=== PATIENT | male | born 1955 | race Caucasian/White ===

== ENCOUNTER 2017-08-15 07:58 | Day surgery (SDC) | payer BC ==
[2017-08-10 09:38] VITALS: BMI 26.7
[~2017-08-15 07:58] MED LIST: LACTATED RINGERS 1,000 ML IV SCH
--- NOTE | 2017-08-15 08:13 | P.GSHP ---
History of Present Illness H&P Date: 08/15/17 CHIEF COMPLAINT: Colon screen HISTORY OF PRESENT ILLNESS: The patient is a 62-year-old male who presents for colon screen. Lower endoscopy was offered for further evaluation and management. PAST MEDICAL HISTORY: Please see list. PAST SURGICAL HISTORY: Please see list. MEDICATIONS: Please see list. ALLERGIES: Please see list. SOCIAL HISTORY: No illicit drug use FAMILY HISTORY: No reports of Crohn disease or ulcerative colitis. REVIEW OF ORGAN SYSTEMS: CONSTITUTIONAL: No reports of fevers or chills. PHYSICAL EXAM: VITAL SIGNS: Stable GENERAL: Well-developed pleasant in no acute distress. HEENT: No scleral icterus. Extraocular movements grossly intact. Moist buccal mucosa. NECK: Supple without lymphadenopathy. CHEST: Unlabored respirations. Equal bilateral excursions. CARDIOVASCULAR: Regular rate and rhythm. Distal 2+ pulses. ABDOMEN: Soft, nontender, nondistended. MUSCULOSKELETAL: No clubbing, cyanosis, or edema. ASSESSMENT: 1. Colon screen. PLAN: 1. 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, r/t severed carotid artery post tonsillectomy, unable to tip head "all the way back" History of Any Multi-Drug Resistant Organisms: None Reported Past Surgical History: Tonsillectomy Additional Past Surgical History / Comment(s): tracheostomy post tonsillectomy r /t severed carotid artery, hemmoroid sx, rhinoplasty Additional Past Anesthesia/Blood Transfusion Reaction / Comment(s): "unable to tip head all the way back" hx of scar tissue r/t to hx tracheostomy Smoking Status: Current every day smoker - Past Family History Father Family Medical History: Cancer Mother Family Medical History: Cancer Medications and Allergies Home Medications Medication Instructions Recorded Confirmed Type Cholecalciferol [Vitamin D3] 1,000 unit PO DAILY 08/10/17 08/10/17 History Cyanocobalamin (Vitamin B-12) 1,000 mcg PO DAILY 08/10/17 08/10/17 History [Vitamin B-12] Ranitidine HCl 150 mg PO HS 08/10/17 08/10/17 History Sildenafil Citrate [Sildenafil] 10 mg PO HS 08/10/17 08/10/17 History Stool Softener 1 tab PO DAILY 08/10/17 History Allergies Allergy/AdvReac Type Severity Reaction Status Date / Time No Known Allergies Allergy Verified 08/10/17 09:25
[2017-08-15 09:06] VITALS: TEMP 97.7
[2017-08-15] MEDS ORDERED: LIDOCAINE 1% 20 ML VIAL (10MG/ML) FOR IV START INTRADERMA ONE (09:06)
[2017-08-15] MEDS ORDERED: PROPOFOL 10 MG/ML 20 ML VIAL IV ONE (09:59)
[2017-08-15] MEDS ORDERED: LIDOCAINE 1% INJ 10MG/ML (20 ML MDV) ONE (09:59)
[2017-08-15 11:12] VITALS: RESP 18
--- NOTE | 2017-08-15 11:14 | P.PCN ---
Date of Procedure: 08/15/17 Description of Procedure: PREOPERATIVE DIAGNOSIS: Colonoscopy screening. Personal history of colon polyps. POSTOPERATIVE DIAGNOSIS: Colonoscopy screening. Personal history of colon polyps. Multiple tubular adenomas throughout the colon. External hemorrhoids, grade 3. Internal hemorrhoids, grade 2 Severe scattered diverticulosis. OPERATION: Colonoscopy to the ileocecal valve and appendiceal orifice. Colonoscopy with multiple snare biopsies. Colonoscopy with multiple cold forceps biopsies. SURGEON: Kiki Ellis MD. ANESTHESIA: MAC. INDICATIONS: The patient is a 62-year-old male who presents for colonoscopy screening. Benefits and risks were described and informed consent was obtained. DESCRIPTION OF PROCEDURE: The patient had undergone Gatorade, MiraLAX and Dulcolax prep. He had been brought into the operating room and laid in the left lateral decubitus position. After adequate intravenous sedation, the rectum was examined with 2% lidocaine jelly. The prostate was smooth and without nodularity. External hemorrhoids were encountered. The rectal tone was within normal limits. No lesions were palpated in the rectal vault. An Olympus colonoscope was advanced until the ileocecal valve and appendiceal orifice were clearly viewed. The prep was fair with visualization of the mucosal folds. The scope was removed with visualization of each mucosal fold. Severe scattered diverticulosis was encountered. Abdominal pressure was required to advance the scope. Multiple colonic polyps were found and cold forcep biopsy or snare polypectomy. No evidence of focal colitis was found. Retroflexion of the scope demonstrated grade 2 internal hemorrhoids without active bleeding or inflammation. The colon was desufflated. The patient had tolerated the procedure well. Withdrawal time was over 6 minutes. FINDINGS: Internal hemorrhoids, grade 2 External hemorrhoids, grade 3 No arteriovenous malformations. Removal of 5 polyps from the proximal, mid transverse colon and descending colon : - Snare polypectomy 20 cm from the anal verge, 10 mm tubulovillous adenoma polyp. - Snare polypectomy 33 cm from the anal verge, 7 mm tubulovillous adenoma polyp. - Cold forceps biopsy at 55 cm from the anal verge, 5 mm polyp. - Cold forceps biopsy at hepatic flexure, 4 mm polyp. - Cold forceps biopsy at proximal ascending colon, 4 mm polyp. No focal colitis. Severe scattered diverticulosis RECOMMENDATIONS: Given severity of tubular adenomas, recommend repeat colonoscopy 1 year, 2019. Plan - Discharge Summary New Discharge Prescriptions: No Action Sildenafil Citrate [Sildenafil] 10 mg PO HS Cyanocobalamin (Vitamin B-12) [Vitamin B-12] 1,000 mcg PO DAILY Cholecalciferol [Vitamin D3] 1,000 unit PO DAILY Ranitidine HCl 150 mg PO HS Stool Softener 1 tab PO DAILY Discharge Medication List Cholecalciferol [Vitamin D3] 1,000 unit PO DAILY 08/10/17 [History] Cyanocobalamin (Vitamin B-12) [Vitamin B-12] 1,000 mcg PO DAILY 08/10/17 [ History] Ranitidine HCl 150 mg PO HS 08/10/17 [History] Sildenafil Citrate [Sildenafil] 10 mg PO HS 08/10/17 [History] Stool Softener 1 tab PO DAILY 08/10/17 [History] Follow up Appointment(s)/Referral(s): Kiki Ellis MD [STAFF PHYSICIAN] - 09/11/17 6:00 pm Patient Instructions/Handouts: *Surgery [facility] - (Anesthesia) Endoscopy Discharge Instructions, Hemorrhoids (GEN), Diverticulosis (DC), Colorectal Polyps (GEN), Diverticulosis Diet (GEN) Activity/Diet/Wound Care/Special Instructions: Repeat colonoscopy, 2019 Discharge Disposition: HOME SELF-CARE
[2017-08-15] MEDS ORDERED: METOCLOPRAMIDE 5 MG/ML 2 ML VIAL IVP STA (11:36)
[2017-08-15] MEDS ORDERED: ONDANSETRON 4 MG/2 ML VIAL IVP ONE (11:36)
[2017-08-15] MEDS ORDERED: SIMETHICONE 40 MG/0.6 ML DROPS 2,000 MG/30 ML BOTTLE PO SCH (11:40)
[2017-08-15] MEDS ORDERED: LACTATED RINGERS 1,000 ML IV ONE (12:52)
[2017-08-15] MEDS ORDERED: NALOXONE 0.4 MG/ML 1 ML VIAL IV PRN (12:52)
[2017-08-15] MEDS ORDERED: ONDANSETRON 4 MG/2 ML VIAL IVP PRN (12:52)
--- NOTE | 2017-08-15 12:55 | P.PN ---
Progress Note - Text Progress Note Date: 08/15/17 Patient now has ileus post procedure. We'll continue to observe. We'll obtain labs.
[2017-08-15] MEDS ORDERED: KETOROLAC 30 MG/ML 1 ML VIAL IVP SCH (13:00)
[2017-08-15] MEDS ORDERED: MIDAZOLAM 2 MG/2 ML VIAL IV ONE ×2 (13:00)
[2017-08-15 13:42] VITALS: BP 130/78; PULSE 64
[2017-08-15 13:50] LABS: Anion Gap 6 mmol/L; Blood Urea Nitrogen 13 mg/dL (9-20); Calcium 9.3 mg/dL (8.4-10.2); Carbon Dioxide 28 mmol/L (22-30); Chloride 104 mmol/L (98-107); Glucose 105 mg/dL (74-99); Magnesium 2.1 mg/dL (1.6-2.3); Sodium 138 mmol/L (137-145)
--- NOTE | 2017-08-15 13:55 | XR ---
EXAMINATION TYPE: XR abdomen complete w decub DATE OF EXAM: 08/15/2017 COMPARISON: 01/07/2010 HISTORY: Pain TECHNIQUE: 4 views of the abdomen are obtained. FINDINGS: There is no evidence for pneumoperitoneum. The bowel gas pattern demonstrates dilated air-filled large and small bowel loops. The patient is imm ediately post colonoscopy. Calcification the pelvis appears to be vascular.. No sizeable air fluid levels. No mass effects are seen. No unusual calcifications. IMPRESSION: Predominantly right-sided bowel distention likely post colonoscopy.
[2017-08-15] MEDS ORDERED: METOCLOPRAMIDE 5 MG/ML 2 ML VIAL IVP SCH (18:00)
--- NOTE | 2017-08-17 02:37 | CDI ---
Outpatient Documentation Clarification Form Date: 08/17/2017 CDS/Library Circulation Clerk Name: Matt Matthews Phone: If any questions, call Rosi Mac Architectural Draftsperson at [phone] Patient Name: Augustine Dunn Admit Date: 08/15/2017 Discharge Date: 08/15/2017 ATTENTION: The [facility] Coding Staff appreciate your assistance in clarifying documentation. Please respond to the clarification below the line at the bottom and electronically sign. The [facility] Coding staff will review the response and follow-up if needed. Please note: Queries are made part of the Legal Health Record. If you have any questions, please contact the Architectural Draftsperson. Dear Dr. Ellis, As per operative notes polypectomy was done. Snare and cold biopsy forceps polypectomy was done at 55, 20, 33 cm from the anal verge. Based on your clinical opinion please mention which anatomical locations of colon represents 55, 20, 33 cm from the anal verge. Thank you for your kind consideration. Please see amended report MTDD
--- NOTE | 2017-08-22 07:05 | CDI ---
Outpatient Documentation Clarification Form Date: 08/22/2017 CDS/Packing House Laborer Name: Matt Matthews Phone: If any questions, call Rosi Mac Warehouse Order Picker at [phone] Patient Name: Augustine Dunn Admit Date: 08/15/2017 Discharge Date: 08/15/2017 ATTENTION: The [facility] Coding Staff appreciate your assistance in clarifying documentation. Please respond to the clarification below the line at the bottom and electronically sign. The [facility] Coding staff will review the response and follow-up if needed. Please note: Queries are made part of the Legal Health Record. If you have any questions, please contact the Warehouse Order Picker. Dear Dr. Ellis, As per operative notes polypectomy was done. Snare and cold biopsy forceps polypectomy was done at 55, 20, 33 cm from the anal verge. Based on your clinical opinion please mention which anatomical locations of colon represents 55, 20, 33 cm from the anal verge. Thank you for your kind consideration. Removal of 5 polyps from the proximal, mid transverse colon and descending colon (Information is listed in the operative report) [facility]
== END 2017-08-15 14:18 | disposition home or self-care (01) ==
LOC: ORWHC2ENDO 07:58
PROVIDERS: ATTEND Surgery Plastic and Reconstructive Surgery
DX: Z12.11 Encounter for screening for malignant neoplasm of colon (principal); D12.3 Benign neoplasm of transverse colon; D12.4 Benign neoplasm of descending colon; D12.2 Benign neoplasm of ascending colon; F17.200 Nicotine dependence, unspecified, uncomplicated; K21.9 Gastro-esophageal reflux disease without esophagitis; Z86.010 Personal history of colon polyps; K64.4 Residual hemorrhoidal skin tags; K64.1 Second degree hemorrhoids; K57.30 Diverticulosis of large intestine without perforation or abscess without bleeding; Z79.899 Other long term (current) drug therapy
CPT/HCPCS: 88305; 80048; 83735; 74021; 45385; 45380; J2250; J2765; J2405; J2001; J1885; J2704

== ENCOUNTER 2018-09-18 08:23 | Day surgery (SDC) | payer BC, MEDICARE ==
[2018-09-16 13:57] VITALS: BMI 26.7
--- NOTE | 2018-09-18 07:55 | P.GSHP ---
History of Present Illness H&P Date: 09/18/18 CHIEF COMPLAINT: Colon screen HISTORY OF PRESENT ILLNESS: The patient is a 63-year-old male who presents for colon screen. Lower endoscopy was offered for further evaluation and management. PAST MEDICAL HISTORY: Please see list. PAST SURGICAL HISTORY: Please see list. MEDICATIONS: Please see list. ALLERGIES: Please see list. SOCIAL HISTORY: No illicit drug use FAMILY HISTORY: No reports of Crohn disease or ulcerative colitis. REVIEW OF ORGAN SYSTEMS: CONSTITUTIONAL: No reports of fevers or chills. PHYSICAL EXAM: VITAL SIGNS: Stable GENERAL: Well-developed pleasant in no acute distress. HEENT: No scleral icterus. Extraocular movements grossly intact. Moist buccal mucosa. NECK: Supple without lymphadenopathy. CHEST: Unlabored respirations. Equal bilateral excursions. CARDIOVASCULAR: Regular rate and rhythm. Distal 2+ pulses. ABDOMEN: Soft, nontender, nondistended. MUSCULOSKELETAL: No clubbing, cyanosis, or edema. ASSESSMENT: 1. Colon screen. PLAN: 1. 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, r/t severed carotid artery post tonsillectomy, unable to tip head "all the way back" History of Any Multi-Drug Resistant Organisms: None Reported Past Surgical History: Tonsillectomy Additional Past Surgical History / Comment(s): tracheostomy post tonsillectomy r/t severed carotid artery, hemmoroid sx, rhinoplasty Additional Past Anesthesia/Blood Transfusion Reaction / Comment(s): "unable to tip head all the way back" hx of scar tissue r/t to hx tracheostomy, states has a "disfunctioning valve" so can only tolerate minimal air in stomach Smoking Status: Current every day smoker - Past Family History Father Family Medical History: Cancer Mother Family Medical History: Cancer Medications and Allergies Home Medications Medication Instructions Recorded Confirmed Type Cholecalciferol [Vitamin D3] 1,000 unit PO DAILY 08/10/17 09/16/18 History Cyanocobalamin (Vitamin B-12) 1,000 mcg PO DAILY 08/10/17 09/16/18 History [Vitamin B-12] Ranitidine HCl 150 mg PO HS 08/10/17 09/16/18 History Sildenafil Citrate [Sildenafil] 10 mg PO HS 08/10/17 09/16/18 History Stool Softener 1 tab PO DAILY 08/10/17 09/16/18 History clonazePAM [KlonoPIN] 1 mg PO DAILY 09/16/18 09/16/18 History Allergies Allergy/AdvReac Type Severity Reaction Status Date / Time No Known Allergies Allergy Verified 09/16/18 13:53
[~2018-09-18 08:23] MED LIST changes: -LACTATED RINGERS 1,000 ML IV SCH; +LIDOCAINE 1% 20 ML VIAL (10MG/ML) FOR IV START INTRADERMA PRN
[2018-09-18] MEDS: LACTATED RINGERS 1,000 ML IV SCH ×2 (09:00→09:18)
[2018-09-18 09:01] VITALS: TEMP 97.7
[2018-09-18] MEDS ORDERED: PROPOFOL 10 MG/ML 20 ML VIAL IV ONE (09:23)
--- NOTE | 2018-09-18 10:08 | P.PCN ---
Date of Procedure: 09/18/18 Description of Procedure: PREOPERATIVE DIAGNOSIS: Colonoscopy screening. Personal history of colon polyps, high-risk colon polyps POSTOPERATIVE DIAGNOSIS: Colonoscopy screening. Personal history of colon polyps. Multiple tubular adenomas throughout the colon. Severe scattered diverticulosis. OPERATION: Colonoscopy to the ileocecal valve and appendiceal orifice. Colonoscopy with multiple snare biopsies. SURGEON: Kiki Ellis MD. ANESTHESIA: MAC. INDICATIONS: The patient is a 63-year-old male who presents for colonoscopy screening. Last colonoscopy 1 year ago. , Benefits and risks were described and informed consent was obtained. DESCRIPTION OF PROCEDURE: The patient had undergone Gatorade, MiraLAX and Dulcolax prep. He had been brought into the operating room and laid in the left lateral decubitus position. After adequate intravenous sedation, the rectum was examined with 2% lidocaine jelly. The prostate was smooth and without nodularity. External hemorrhoids were encountered. The rectal tone was within normal limits. No lesions were palpated in the rectal vault. An Olympus colonoscope was advanced until the ileocecal valve and appendiceal orifice were clearly viewed. The prep was good with visualization of the mucosal folds. The scope was removed with visualization of each mucosal fold. Severe scattered diverticulosis was encountered. Abdominal pressure was required to advance the scope. Multiple colonic polyps were found and snare polypectomy. No evidence of focal colitis was found. Retroflexion of the scope demonstrated grade 2 internal hemorrhoids without active bleeding or inflammation. The colon was desufflated. The patient had tolerated the procedure well. Withdrawal time was over 6 minutes. FINDINGS: Aronchick colon prep 2 (grade 1 to 5) Internal hemorrhoids, grade 2 External hemorrhoids, grade 3 No arteriovenous malformations. Removal of 5 polyps: - Snare polypectomy ascending colon 3, 3 to 5 mm tubulovillous adenoma polyps - Snare polypectomy hepatic flexure x 2, 6 mm polyp tubular adenoma (1 retrieved for specimen) No focal colitis. Severe scattered diverticulosis Severe tortuosity of sigmoid colon with redundancy RECOMMENDATIONS: Given severity of tubular adenomas, recommend repeat colonoscopy 2 years, 2020. Plan - Discharge Summary Discharge Rx Participant: No New Discharge Prescriptions: No Action Sildenafil Citrate [Sildenafil] 10 mg PO HS Cyanocobalamin (Vitamin B-12) [Vitamin B-12] 1,000 mcg PO DAILY Cholecalciferol [Vitamin D3] 1,000 unit PO DAILY Ranitidine HCl 150 mg PO HS Stool Softener 1 tab PO DAILY clonazePAM [KlonoPIN] 1 mg PO DAILY Discharge Medication List Cholecalciferol [Vitamin D3] 1,000 unit PO DAILY 08/10/17 [History] Cyanocobalamin (Vitamin B-12) [Vitamin B-12] 1,000 mcg PO DAILY 08/10/17 [History] Ranitidine HCl 150 mg PO HS 08/10/17 [History] Sildenafil Citrate [Sildenafil] 10 mg PO HS 08/10/17 [History] Stool Softener 1 tab PO DAILY 08/10/17 [History] clonazePAM [KlonoPIN] 1 mg PO DAILY 09/16/18 [History] Follow up Appointment(s)/Referral(s): Kiki Ellis MD [STAFF PHYSICIAN] - As Needed Patient Instructions/Handouts: Colorectal Polyps (IP), Diverticulosis Diet (GEN), Diverticulosis (GEN) Activity/Diet/Wound Care/Special Instructions: Repeat colonoscopy 2 years, 2020 Discharge Disposition: HOME SELF-CARE
[2018-09-18] MEDS ORDERED: METOCLOPRAMIDE 5 MG/ML 2 ML VIAL IVP STA (10:09)
[2018-09-18] MEDS: SIMETHICONE 40 MG/0.6 ML DROPS 2,000 MG/30 ML BOTTLE PO STA ×2 (11:01→11:52)
[2018-09-18 11:09] VITALS: RESP 18
[2018-09-18 12:08] VITALS: BP 136/87; PULSE 57
[2018-09-18] MEDS ORDERED: ONDANSETRON 4 MG/2 ML VIAL IVP ONE (12:37)
--- NOTE | 2018-09-20 15:30 | CDI ---
Date: 09/20/18 CDS/Flight Control Tower Operator Name: Yolie James Phone: If any questions, call Rosi Mac Escrow Assistant at [phone] Patient Name: Augustine Dunn Admit Date: 09/18/18 Discharge Date: 09/18/18 ATTENTION: The [facility] Coding Staff appreciate your assistance in clarifying documentation. Please respond to the clarification below the line at the bottom and electronically sign. The [facility] Coding staff will review the response and follow-up if needed. Please note: Queries are made part of the Legal Health Record. If you have any questions, please contact the Escrow Assistant. Dear Dr. Ellis, Please provide clarification of the location and number of polyps removed. Operative report documents 5 polyps, 3 from the ascending colon and 2 from the hepatic flexure. Pathology report documents only (1) polyp being submitted. Please clarify. Thank you for your kind consideration. ____ ALL POLYPS REMOVED, ONLY 1 SPECIMEN RETRIEVED, REST LOST IN RETREIVAL PROCESS. 10/20/18 @ 2[address] [facility]
== END 2018-09-18 13:35 | disposition home or self-care (01) ==
LOC: ORWHC2ENDO 08:23
PROVIDERS: ATTEND Surgery Plastic and Reconstructive Surgery
DX: Z12.11 Encounter for screening for malignant neoplasm of colon (principal); D12.3 Benign neoplasm of transverse colon; K57.90 Diverticulosis of intestine, part unspecified, without perforation or abscess without bleeding; Z86.010 Personal history of colon polyps; K64.2 Third degree hemorrhoids; K64.1 Second degree hemorrhoids; Q43.8 Other specified congenital malformations of intestine; K21.9 Gastro-esophageal reflux disease without esophagitis; G47.33 Obstructive sleep apnea (adult) (pediatric); J39.8 Other specified diseases of upper respiratory tract; F17.200 Nicotine dependence, unspecified, uncomplicated; Z79.899 Other long term (current) drug therapy
CPT/HCPCS: 88305; 45385; J2765; J2405; J2704

== ENCOUNTER → 2018-10-15 | Outpatient (CLI) | payer MEDICARE ==
[2018-10-15 14:43] LABS: Blood Urea Nitrogen 15 mg/dL (9-20)
--- NOTE | 2018-10-15 16:07 | CT ---
EXAMINATION TYPE: CT abdomen pelvis w con DATE OF EXAM: 10/15/2018 COMPARISON: Abdominal x-ray dated 08/15/2017 HISTORY: Diverticulitis CT DLP: 1025.4 mGycm Automated exposure control for dose reduction was used. TECHNIQUE: Helical acquisition of images was performed from the lung bases through the pelvis. CONTRAST: Performed with Oral Contrast and with IV Contrast, patient injected with 100 mL of Isovue 300. FINDINGS: LUNG BASES: No significant abnormality is appreciated. LIVER/GB: Very minimal wedge-shaped hypoattenuation is seen near the fissure for the falciform ligame nt likely related to focal fatty infiltration of the liver. No suspicious hepatic mass is seen. No in trapelvic biliary ductal dilatation. Gallbladder is partially contracted without radiopaque calculi. There is suspected developing early hepatic steatosis. PANCREAS: No significant abnormality is seen. SPLEEN: The spleen is enlarged in longitudinal dimension measuring 14.6 cm. ADRENALS: No significant abnormality is seen. KIDNEYS: On delayed images there are 2 small to accurately characterize punctate right renal lesions. No hydronephrosis of either kidney nor greater than 1 cm mass. Urinary bladder is incompletely diste nded and suboptimally evaluated. FREE AIR: No free air is visualized. ADENOPATHY: No greater than 1 cm short axis lymph node is seen in the abdomen or pelvis. REPRODUCTIVE ORGANS: Prostate gland is enlarged measuring 5.5 cm and heterogenous with punctate centr al zone calcifications and areas of increased density. URINARY BLADDER: No significant abnormality is seen. OSSEOUS STRUCTURES: Nonspecific sclerotic focus of the left femoral head could relate to benign bone island. Mild multilevel degenerative changes of the spine. BOWEL: Duodenal lipoma is incidentally noted. There is long segment bowel wall thickening of the sig moid colon with innumerable colonic diverticula, predominating in the sigmoid colon. There is no curr ent pericolonic fat stranding. No findings to suspect pericolonic abscess. No dilatation of large or small bowel. Contrast only progresses into the hepatic flexure limiting evaluation of the colon. OTHER: There is thrombus in the distal superior mesenteric artery extending primarily into the spleni c artery marked on series 3 image 24. The right hepatic artery is extremely diminutive in caliber but appears patent. There is patency of the distal splenic artery and therefore the thrombus is nonocclu sive. There is peripheral calcification suggesting chronicity. IMPRESSION: 1. 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 PERIPHERAL CALCIFICATION SUGGESTS CHRON ICITY. THE HEPATIC ARTERY APPEARS MARKEDLY DIMINUTIVE IN CALIBER. 2. DIFFUSE LONG SEGMENT SIGMOID COLONIC WALL THICKENING AND INNUMERABLE DIVERTICULA SUGGESTS SEQUELA OF CHRONIC DIVERTICULITIS. NO ACUTE PERICOLONIC INFLAMMATORY FAT STRANDING. 3. SPLENOMEGALY.
== END ==
LOC: RADCTMAIN 13:55
PROVIDERS: ATTEND Surgery Plastic and Reconstructive Surgery
DX: I74.8 Embolism and thrombosis of other arteries (principal); K63.89 Other specified diseases of intestine; R16.1 Splenomegaly, not elsewhere classified
CPT/HCPCS: 82565; 84520; 74177; 36415; Q9967

== ENCOUNTER → 2018-11-09 | Outpatient (CLI) | payer MEDICARE ==
--- NOTE | 2018-11-09 10:06 | MR ---
EXAMINATION TYPE: MR knee RT wo con DATE OF EXAM: 11/09/2018 9:29 AM COMPARISON: NONE HISTORY: Rt knee pain x 10 yrs TECHNIQUE: Multiplanar, multiecho imaging of the knee is performed without IV contrast. FINDINGS: There is a small joint effusion. There is a 1.3 cm pseudocyst in the region of the intercondylar spines at the insertion site of the a nterior cruciate ligament. There is grade IV chondromalacia involving the lateral patellar facet and also the weightbearing surf jose of the lateral femoral condyle. There is a chondral defect in the posterior aspect of the lateral femoral condyle. There is also partial collapse of the subchondral bone. The adjacent posterior horn of the medial meniscus is torn and there is a horizontal split tear through the posterior horn of th e lateral meniscus communicating with the apex. There is some abnormal signal within the medial menis cus but no through and through tear is seen. The cartilage of the medial femoral condyle is unremarka ble. Both the anterior and posterior cruciate ligaments are intact. Both the medial and lateral collateral ligament complexes are intact. Iliotibial band inserts normall y upon Gerdy's tubercle. The popliteus muscle and tendon are normal. Both the quadriceps and patellar tendons are intact. There is mild swelling in the Hoffa fat space. IMPRESSION: 1. SMALL JOINT EFFUSION. 2. CHONDROMALACIA DESCRIBED. 3. CHONDRAL DEFECT IN THE POSTERIOR ASPECT OF THE MEDIAL FEMORAL CONDYLE WITH MILD COLLAPSE OF THE AD JACENT BONE. 4. HORIZONTAL TEAR THROUGH THE POSTERIOR HORN OF THE LATERAL MENISCUS COMMUNICATING WITH THE APEX OF THE MENISCUS. 5. PSEUDOCYST FORMATION IN THE REGION OF THE INTERCONDYLAR SPINES.
== END | disposition home or self-care (01) ==
LOC: RADMRIMAIN 08:43
PROVIDERS: ATTEND Family Medicine
DX: S83.281A Other tear of lateral meniscus, current injury, right knee, initial encounter (principal); M22.41 Chondromalacia patellae, right knee

== ENCOUNTER → 2021-02-10 | Outpatient (CLI) | payer MEDICARE ==
--- NOTE | 2021-02-10 13:19 | US ---
EXAMINATION TYPE: US duplex aorta DATE OF EXAM: 02/10/2021 COMPARISON: Correlation and CT 10/15/2018 CLINICAL HISTORY: 65-year-old male Z72.0 Tobacco use. TECHNIQUE: Multiple sonographic images of the abdominal aorta are obtained. FINDINGS: EXAM MEASUREMENTS: Abdominal Aorta: Proximal: 2.1 x 2.2cm Mid: 1.8 x 2.2cm Distal: 1.8 x 2.0cm Right Iliac: 1.0 x 1.3cm Left Iliac: 1.1 x 1.3cm IMPRESSION: No sonographic evidence for abdominal aortic ectasia or aneurysm.
== END | disposition home or self-care (01) ==
LOC: RADUSWWP 08:41
PROVIDERS: ATTEND Family Medicine
DX: Z72.0 Tobacco use (principal)
CPT/HCPCS: 93979

== ENCOUNTER → 2022-04-12 | Outpatient (CLI) | payer MEDICARE ==
--- NOTE | 2022-04-12 10:25 | MR ---
EXAMINATION TYPE: MR knee LT wo con DATE OF EXAM: 04/12/2022 COMPARISON: NONE HISTORY: L knee inner pain and locking for years TECHNIQUE: Multiplanar, multisequence images of the knee is performed without IV contrast. FINDINGS: MEDIAL MENISCUS: Oblique signal posterior horn extending to inferior articular surface sagittal image 28. LATERAL MENISCUS: Anterior and posterior horns are intact without tear. CRUCIATE LIGAMENTS: The anterior and posterior cruciate ligaments are intact. Increased signal distal anterior cruciate ligament insertion. COLLATERAL LIGAMENTS: The medial collateral ligament and lateral collateral ligament complex are inta ct and unremarkable. EXTENSOR MECHANISM: Visualized quadriceps and patellar tendons are intact. Small spur bony projection anterior superior patellar distal quadriceps tendon insertion. EFFUSION: Small size suprapatellar joint effusion. POPLITEAL CYST: No popliteal/gates cyst. TRICOMPARTMENT SPACES: Moderate tricompartment joint space loss and mild spurring CARTILAGE: Cartilaginous loss medial tibiofemoral compartment. BONE MARROW SIGNAL: Subchondral cystic change central tibial plateau. OTHER: No additional significant abnormality is appreciated. IMPRESSION: 1. Full-thickness oblique tear posterior horn medial meniscus. 2. Moderate tricompartment degenerative changes likely on basis of osteoarthritis greatest medial tib ial femoral compartment as detailed above. 3. Small suprapatellar joint effusion. 4. Partial tearing and/or myxoid degeneration of the ACL. No full-thickness tear is seen.
== END | disposition home or self-care (01) ==
LOC: RADMRIMAIN 08:19
PROVIDERS: ATTEND Orthopaedic Surgery
DX: M23.222 Derangement of posterior horn of medial meniscus due to old tear or injury, left knee (principal); M17.12 Unilateral primary osteoarthritis, left knee; M23.232 Derangement of other medial meniscus due to old tear or injury, left knee; M25.462 Effusion, left knee

== ENCOUNTER → 2022-05-19 | Outpatient (CLI) | payer MEDICARE ==
--- NOTE | 2022-05-19 14:29 | CTL ---
EXAMINATION TYPE: CT Low Dose Lung DATE OF EXAM ORDERED: 05/19/2022 History: Lung cancer screening. CT DLP: [address] CTDI: 3.6 mGy Automated exposure control for dose reduction was used. COMPARISON: None TECHNIQUE: Low dose computed tomography scan was performed through the chest at 1 mm thick sections a nd reconstructed images in multiple planes at 1 mm and [address] DIAGNOSTIC QUALITY: Satisfactory FINDINGS: The lungs are clear of abnormal consolidative/airspace or interstitial density. There are a few scattered sub-6 mm right pulmonary nodules. There are scattered calcified pleural plaques raising suspicion of prior asbestos exposure. There is no pleural effusion or pneumothorax. The great vessels the chest are normal and there is no mediastinal, hilar or axillary adenopathy. Limited scanning the upper abdomen feels no gross abnormality. No focal lytic or blastic osseous abnormalities are seen. IMPRESSION: 1. Few scattered sub-6 mm right upper lobe pulmonary nodules. Lung RADS category 2 negative. Continue routine screening yearly intervals. 2. Scattered small calcified pleural based plaques raising the suspicion for a specialist exposure. 3. No acute cardiopulmonary disease.
== END | disposition home or self-care (01) ==
LOC: RADCTMAIN 12:01
PROVIDERS: ATTEND Family Medicine
DX: Z12.2 Encounter for screening for malignant neoplasm of respiratory organs (principal); J98.4 Other disorders of lung; R91.8 Other nonspecific abnormal finding of lung field; Z87.891 Personal history of nicotine dependence
CPT/HCPCS: 71271

== ENCOUNTER → 2022-05-23 | Outpatient (CLI) | payer MEDICARE ==
[2022-05-23 18:39] LABS: HCT 47.9 % (39.6-50.0); HGB 15.5 g/dL (13.0-17.0); MCH 31.1 pg (27.0-32.0); MCHC 32.4 g/dL (32.0-37.0); NRBC Per 100 WBC 0 /100 WBCS (0.0-0.0); Platelet Count 117 X 10*3/uL (140-440); RBC 4.99 X 10*6/uL (4.40-5.60); RDW 13.4 % (11.5-14.5); WBC 10.17 X 10*3/uL (4.50-10.00)
[2022-05-23 18:40] LABS: Anion Gap 10.5 mmol/L (10.00-18.00); Carbon Dioxide 25.9 mmol/L (20.0-27.5); Potassium 4.5 mmol/L (3.5-5.5)
[2022-05-23 19:17] LABS: Basophils # (A) 0.08 X 10*3/uL (0.00-0.10); Basophils % (A) 0.8 %; Eosinophils # (A) 0.13 X 10*3/uL (0.04-0.35); Eosinophils % (A) 1.3 %; Immature Grans, Automated 0.2 %; Lymphocytes # (A) 4.26 X 10*3/uL (0.90-5.00); Lymphocytes % (A) 41.9 %; Monocytes # (A) 0.59 X 10*3/uL (0.20-1.00); Monocytes % (A) 5.8 %; Neutrophils # (A) 5.09 X 10*3/uL (1.80-7.70)
== END | disposition home or self-care (01) ==
LOC: LABPAT 10:43
PROVIDERS: ATTEND Orthopaedic Surgery
DX: Z01.818 Encounter for other preprocedural examination (principal); I49.9 Cardiac arrhythmia, unspecified; M23.92 Unspecified internal derangement of left knee
CPT/HCPCS: 80051; 85025; 93005

== ENCOUNTER → 2023-01-08 | Outpatient (CLI) | payer MEDICARE ==
[2023-01-08 10:45] LABS: INR 0.9 (<1.2)
[2023-01-08 10:48] LABS: Partial Thromboplastin Time 21.8 sec (22.0-30.0)
[2023-01-08 15:45] LABS: HCT 48.4 % (39.6-50.0); MCH 31.4 pg (27.0-32.0); MCHC 33.1 d/dL (32.0-37.0); MCV 94.9 FL (80.0-97.0); Mean Platelet Volume 12.5 FL (9.5-12.2); NRBC Per 100 WBC 0 X 10*3/uL (0.00-0.01); Platelet Count 114 X 10*3/uL (140-440); RDW 13.6 % (11.5-14.5); WBC 10.16 X 10*3/uL (4.50-10.00)
[2023-01-08 15:49] LABS: Blood Urea Nitrogen 12.1 mg/dL (9.0-27.0); Calcium 10.1 mg/dL (8.7-10.3); Carbon Dioxide 26.8 mmol/L (21.6-31.8); Chloride 105 mmol/L (96-109); Glucose 104 mg/dL (70-110); Potassium 4.3 mmol/L (3.5-5.5); Sodium 142 mmol/L (135-145)
[2023-01-08 17:52] LABS: Basophils # (M) 0 X 10*3/uL (0.00-0.10); Lymphocytes # (M) 5.18 X 10*3/uL (0.90-5.00); Neutrophils # (M) 4.37 X 10*3/uL (1.80-7.70); Neutrophils % (M) 43 %; Smudge Cells Present
== END | disposition home or self-care (01) ==
LOC: LABWHC1 09:29
PROVIDERS: ATTEND Orthopaedic Surgery
DX: Z01.818 Encounter for other preprocedural examination (principal); M17.12 Unilateral primary osteoarthritis, left knee; Z22.322 Carrier or suspected carrier of Methicillin resistant Staphylococcus aureus
CPT/HCPCS: 36415; 80048; 85025; 85610; 85730; 87070; 93005

== ENCOUNTER → 2023-01-29 | Day surgery (SDC) | payer MEDICARE ==
--- NOTE | 2023-01-28 13:04 | HP ---
HISTORY AND PHYSICAL DATE OF SURGERY: 01/29/2023 HISTORY OF PRESENT ILLNESS: Augustine Dunn is a 67-year-old gentleman seen with symptomatic left knee osteoarthritis. We discussed options for treatment. He elected to proceed with left total knee arthroplasty. Consent regarding the procedure was obtained. Medical clearance was provided by Urvashi Shaw NP. PAST MEDICAL HISTORY: Noncontributory. SURGICAL HISTORY: Rhinoplasty, tonsillectomy. DAILY MEDICATIONS: 1. Flomax. 2. Motrin. ALLERGIES: None. SOCIAL HISTORY: He denies tobacco use. PHYSICAL EVALUATION OF THE LEFT KNEE: Range of motion is negative 2 to 130 degrees, mild effusion, tenderness to medial joint line. Crepitance along the medial patellofemoral compartments with range of motion. Pain with patellofemoral compression. Ligaments are stable. Hip rotation without pain. Distal neurovascular exam is intact. IMAGING: Radiographs of the left knee reveal severe osteoarthritic changes. IMPRESSION: Left knee osteoarthritis. PLAN: Left total knee arthroplasty. MMODL / IJN: [id number] /
[~2023-01-29] MED LIST changes: +ACETAMINOPHEN TAB 500 MG TAB PO PRN; +DEXAMETHASONE SOD PHOSPHATE 4 MG/ML 1 ML VIAL IVP ONE; +DEXAMETHASONE SOD PHOSPHATE 4 MG/ML 1 ML VIAL ONE; +GLYCOPYRROLATE 0.2 MG/ML 2 ML VIAL ONE; +HYDROcodone/APAP 5-325MG 1 EACH TAB PO PRN; +HYDROcodone/APAP 7.5-325MG 1 EACH TAB PO PRN; +HYDROmorphone (PF) 1 MG/ML ONE; +HYDROmorphone 0.5 MG/0.5 ML SYRINGE IVP PRN; +LACTATED RINGERS 1,000 ML IV ONE; +LACTATED RINGERS 1,000 ML IV SCH; +LIDOCAINE 1% (10MG/ML) FOR IV START INTRADERMA PRN; -LIDOCAINE 1% 20 ML VIAL (10MG/ML) FOR IV START INTRADERMA PRN; +LIDOCAINE 2% INJ 20 MG/ML (2 ML VIAL) ONE; +MELOXICAM 7.5 MG TAB PO PRN; +MIDAZOLAM 2 MG/2 ML VIAL IVP ONE; +NALOXONE 0.4 MG/ML 1 ML VIAL IV PRN; +NEOSTIGMINE 1 MG/ML 10 ML VIAL ONE; +ONDANSETRON 4 MG/2 ML VIAL IVP ONE; +ONDANSETRON 4 MG/2 ML VIAL IVP PRN; +PROPOFOL 10 MG/ML 20 ML VIAL IV ONE; +ROCURONIUM 10 MG/ML (5 ML VIAL) IV ONE; +ROPIVACAINE 1,100 MG, SODIUM CHLORIDE 0.9% 500 ML 330 ML, EMPTY PAIN BALL 1 EACH MISCELLANE PRN; +ROPIVACAINE 5 MG/ML 30 ML VIAL ONE; +SUCCINYLCHOLINE CHLORIDE 200 MG/10 ML VIAL IV ONE; +TRANEXAMIC 1,000 MG/100ML-NACL 1,000 MG in SALINE 1 100ML.BAG IVPB PRN; +TRANEXAMIC 1,000 MG/100ML-NACL PREMIX BAG ONE; +fentaNYL (PF) 50 MCG/ML 2 ML AMP ONE
--- NOTE | 2023-01-29 09:14 | P.OP ---
Date of Procedure: 01/29/23 Preoperative Diagnosis: Left knee osteoarthritis Postoperative Diagnosis: Left knee osteoarthritis Procedure(s) Performed: Left total knee arthroplasty Implants: 1. Depuy attune size 7 left cruciate retaining cemented femur 2. Depuy attune size 7 fixed bearing cemented tibial baseplate 3. Depuy attune size 7 fixed bearing cruciate retaining 7 mm polyethylene tibial insert 4. Depuy attune 38 mm all polyethylene cemented patella Anesthesia: GETA, regional (Adductor canal catheter, Ipack block) Surgeon: Wilton Shaw Capacity Planner #1: Gabriele Ramos Estimated Blood Loss (ml): 35 Pathology: none sent Condition: stable Disposition: PACU Indications for Procedure: 67-year-old patient seen with symptomatic left knee osteoarthritis. After having treatment options discussed, he elected to proceed with total knee arthro plasty. Operative Findings: See description of procedure Description of Procedure: Patient was taken to the operative suite after having an adductor canal catheter placed by the department of anesthesia. Patient underwent a general anesthetic by the department of anesthesia. Patient was given preoperative IV intake antibiotics and TXA. A well-padded tourniquet was placed about the left lower extremity. The lower extremity was then prepped and draped in the normal sterile orthopedic fashion. The extremity was elevated, a tourniquet was in sufflated to 300. A standard anterior incision was made sharply through skin. Dissection was taken down through the subcutaneous soft tissues down to the extensor mechanism. A medial arthrotomy was performed, patella was everted and knee was flexed. There was advanced osteoarthritis noted. I introduced my distal intramedullary femoral drill. I then introduced the distal femoral cutting jig. Ino ALCANTAR secured the cutting jig with 2 pins. I held retractors in position while Ino ALCANTAR performed the distal femoral resection through the guide area we now removed her distal femoral cutting guide. We now placed our 4-in-1 femoral cutting block and positioned and it was secured with 2 pins by Ino ALCANTAR while I held the block in position. The distal femoral finishing was now completed. A proximal tibial cutting guide was positioned. I held the guide in the appropriate position with both hands well Ino ALCANTAR inserted stabilizing pins into the guide. Proximal tibial cut was made. We now placed a trial femoral component into position, along with an appropriate size tibial tray and insert. We now took the knee through range of motion and had full extension good flexion and good overall soft tissue balance noted. The patella was everted and stabilized with 2 towel clips held by Ino ALCANTAR while I performed a flush with patellar quad tendon utilizing a fresh sawblade. We templated the patella, appropriate drill holes were made. An appropriate trial patella was positioned, knee was taken through full range of motion with the patella tracking very nicely. The trial patella was removed. Drill holes were made through the femoral component. All trial components were removed after marking off the appropriate rotation of the tibia. Retractors were now positioned along the proximal tibia. An appropriate keel punch was made with the appropriate size tibial guide by myself on Ino ALCANTAR assisted by holding retractors. At this point appropriate size implants were chosen and opened. The joint was irrigated copiously with pulse lavage mechanical irrigation. The wound was irrigated with pulse lavage mechanical irrigation. We mixed antibiotic methylmethacrylate. We placed the knee into flexion. We placed multiple retractors assisted by Ino ALCANTAR to expose the proximal tibia. Once the methyl methacrylate was ready, the tibial component was cemented into place removing any excess methylmethacrylate form by both myself and Ino ALCANTAR. The femoral component was cemented into place removing the removing any excess methylmethacrylate performed by both myself and Ino ALCANTAR. We then inserted the appropriate size polyethylene tibial insert. We made sure that it was locked into position. We took the knee into full extension, and then back in a flexion making sure we had removed any excess methylmethacrylate. The patellar component was then cemented down and secured with clamp. Excess methylmethacrylate removed. We kept the knee in full extension, patellar clamp in position until methylmethacrylate had hardened. Once it had hardened the patellar clamp was removed. The knee was taken through full range of motion. The patella tracked nicely. There was good soft tissue balancing. The tourniquet was now released. Additional hemostasis was achieved via electrocautery. A second gram of TXA was given. The wound again was irrigated with pulse lavage mechanical irrigation. The extensor mechanism was repaired with Ethibond suture. We checked the repair with range of motion and it was stable. The subcutaneous soft tissues were repaired with Vicryl in layers. The skin was approximated with pernio/Dermabond. Sterile dressings were applied followed by loose web roll and Peter bandage. The patient was transferred to a bed, and taken to recovery in stable and satisfactory condition. Ino ALCANTAR assisted with this complex procedure.
[2023-01-29] MEDS: HYDROmorphone 0.5 MG/0.5 ML SYRINGE IVP PRN ×4 (09:40→10:03)
[2023-01-29 09:45] VITALS: TEMP 97
--- NOTE | 2023-01-29 11:08 | XR ---
EXAMINATION TYPE: XR knee limited LT DATE OF EXAM: 01/29/2023 10:52 AM INDICATION: Patient age:Male; 67 years old; Reason for study: Evaluation for Postop abnormality and alignment; [facility]. COMPARISON: Left knee radiograph 09/15/2022 TECHNIQUE: The Left knee(s) was examined in Frontal and crosstable lateral projections. FINDINGS: Postsurgical changes from left knee arthroplasty with distal femoral and proximal tibial components. Hardware appears intact with appropriate alignment. There is associated soft tissue gas a nd edema. No acute fracture or dislocation. IMPRESSION: Post surgical changes from left knee arthroplasty. Hardware appears intact with appropriate alignment .
[2023-01-29 12:52] VITALS: RESP 14
[2023-01-29 13:08] VITALS: BP 156/95; PULSE 65
--- NOTE | 2023-01-29 20:53 | P.ANPRN ---
Procedure Note - Anesthesia - Nerve Block Performed Left Adductor Canal Infusion Time Out Performed: Yes Date of Procedure: 01/29/23 Procedure Start Time: Procedure Stop Time: Location of Patient: PreOp Indication: Acute Post-Operative Pain, Requested by Surgeon Sedation Type: Sedate with meaningful contact maintained Preparation: Sterile Prep, Sterile Dressing Position: Supine Catheter: Indwelling Needle Types: Pajunk Needle Gauge: 21 Ultrasound used to visualize needle placement: Yes Ultrasound used to observe medication spread: Yes Blood Aspirated: No Pain Paresthesia on Injection Noted: No Resistance on Injection: Normal Image Stored and Saved: Yes Events: Uneventful and Well Tolerated (ropi .5% 20cc plus dexamethasone 4mg)
--- NOTE | 2023-01-29 20:54 | P.ANPRN ---
Procedure Note - Anesthesia - Nerve Block Performed Left iPack Single Time Out Performed: Yes Date of Procedure: 01/29/23 Procedure Start Time: : Procedure Stop Time: : Location of Patient: PreOp Indication: Acute Post-Operative Pain, Requested by Surgeon Sedation Type: Sedate with meaningful contact maintained Preparation: Sterile Prep Position: Supine Needle Types: Pajunk Needle Gauge: 21 Ultrasound used to visualize needle placement: Yes Ultrasound used to observe medication spread: Yes Blood Aspirated: No Pain Paresthesia on Injection Noted: No Resistance on Injection: Normal Image Stored and Saved: Yes Events: Uneventful and Well Tolerated (ropi .5% 25cc plus dexamethasone 4mg)
== END | disposition home health service (06) ==
LOC: OR 05:39
PROVIDERS: ATTEND Orthopaedic Surgery
DX: M17.12 Unilateral primary osteoarthritis, left knee (principal); N40.0 Benign prostatic hyperplasia without lower urinary tract symptoms; K21.9 Gastro-esophageal reflux disease without esophagitis; F17.210 Nicotine dependence, cigarettes, uncomplicated; Z79.899 Other long term (current) drug therapy; Z79.1 Long term (current) use of non-steroidal anti-inflammatories (NSAID)
CPT/HCPCS: 97530; 97161; 64999; 64448; 73560; 27447; C1776; C1713 ×2; C1751; J2250; J0330; J1100; J2710; J0690; J2405; J3010; J1170 ×2; J2795; J2704; J2001

== ENCOUNTER → 2023-05-22 | Outpatient (CLI) | payer MEDICARE ==
--- NOTE | 2023-05-29 01:51 | CTL ---
EXAMINATION TYPE: CT Low Dose Lung DATE OF EXAM: 05/22/2023 1:04 PM CLINICAL INDICATION:Male, 67 years old with history of Z87.891 personal hx tobacco use; Personal hx t obacco use. 1 pk per day x 30 years, still smoking, noted no concerns , history of tobacco use. COMPARISON: 05/19/2022 CT Low Dose Lung TECHNIQUE: CT scan of the chest obtained without contrast from approximately the lung apices through the upper abdomen. Axial, coronal and sagittal reformatted images were obtained. Low dose technique w as utilized for nodule screening purposes. CT DLP: 130.30 mGycm, Automated exposure control for dose reduction was used. CT Contrast: IV contrast used: None. Oral contrast used: None. FINDINGS: Lack of intravenous contrast and low dose technique limits the evaluation of the vascular and soft ti ssue structures. LUNGS: No evidence of pulmonary fibrosis. No evidence of focal consolidation or infiltrate. There are emphysematous changes bilaterally, minimal in the upper lobes. Grossly unchanged mostly calcified pl eural plaques bilaterally suggesting prior asbestos exposure. NODULES: A few scattered under 6 mm nodules in the right lung remain unchanged. No new or enlarging nodules. PLEURA: No sizeable pleural effusion or pneumothorax. AIRWAY: Axial images show what could easily be mistaken for step-off artifact from motion in the trac hea at the level of the thoracic inlet, however after review of multiplanar imaging and the fact this had the same appearance in 2022, this instead is judged to represent a tracheal stenosis. The transv erse dimension of the tracheal lumen narrows from 25.2 mm to 7.6 mm over a short segment of about 4 m m. More distally, the central airways are patent. LOWER NECK: No significant abnormality seen, other than the trachea described above. MEDIASTINUM: No evidence of enlarged mediastinal or hilar nodes, in the limits of unenhanced exam.. HEART: Normal heart size. No significant coronary arterial calcification seen.. No appreciable perica rdial effusion. A couple of nonenlarged nodules/nodes in the pericardial fat on the right images 47 a nd 48 are stable. VASCULATURE: Mild atherosclerotic calcifications of the aorta and branches. Ascending aorta shows st able fusiform ectasia up to 4.2 CM, descending is 2.8 CM. Pulmonary trunk measures 2.7 CM, normal in size. Vessels otherwise not further assessed without contrast. SOFT TISSUES/LYMPH NODES: Mild bilateral gynecomastia. No evidence of axillary adenopathy. UPPER ABDOMEN: Heavy calcification again seen appears related to the proximal splenic artery. No mass of the visualized adrenals. MUSCULOSKELETAL: Mild disc degeneration changes are present throughout the thoracolumbar spine. No a cute findings. IMPRESSION: 1. Stable scattered under 6 mm mm right lung nodules. No new or enlarging nodules. 2. 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 3. Calcified pleural plaques suggesting prior asbestos exposure. 4. Stable 4.2 cm fusiform ectasia of the ascending thoracic aorta. CT LUNG RAD AND CT CHEST RECOMMENDATION: Lung-Rad 2 Benign Appearance or Behavior: Continue annual sc reening with LDCT in 12 months. C Modifier (Personal history of lung cancer?): No. S Modifier (Other clinically significant or potentially significant findings?): Yes Other significant or potentially significant abnormalities: Tracheal stenosis, calcified pleural pl aques Recommend smoking cessation (if current smoker), or continuation of smoking cessation (if prior smoke r). Annual screening for lung cancer with low-dose computed tomography is recommended in adults ages 55 to 77 years who have a 30 pack-year smoking history and currently smoke or have quit within the pa st 15 years. Screening should be discontinued once a person has not smoked for 15 years or develops a health problem that substantially limits life expectancy or the ability or willingness to have curat jimmie lung surgery. Lung rads 2021 [email or web address]
== END | disposition home or self-care (01) ==
LOC: RADCTMAIN 12:21
PROVIDERS: ATTEND Family Medicine
DX: Z12.2 Encounter for screening for malignant neoplasm of respiratory organs (principal); J39.8 Other specified diseases of upper respiratory tract; J92.9 Pleural plaque without asbestos; I77.810 Thoracic aortic ectasia; R91.8 Other nonspecific abnormal finding of lung field; F17.210 Nicotine dependence, cigarettes, uncomplicated
CPT/HCPCS: 71271

== ENCOUNTER 2023-07-26 08:08 | Day surgery (SDC) | payer MEDICARE ==
--- NOTE | 2023-07-26 07:29 | P.GSHP ---
History of Present Illness H&P Date: 07/26/23 CHIEF COMPLAINT: GERD and colon screen HISTORY OF PRESENT ILLNESS: The patient is a 68-year-old male who presents with gastroesophageal reflux disease and need for colon screen. Upper and lower endoscopy were offered for further evaluation and management. PAST MEDICAL HISTORY: Please see list. PAST SURGICAL HISTORY: Please see list. MEDICATIONS: Please see list. ALLERGIES: Please see list. SOCIAL HISTORY: No illicit drug use FAMILY HISTORY: No reports of Crohn disease or ulcerative colitis. REVIEW OF ORGAN SYSTEMS: CONSTITUTIONAL: No reports of fevers or chills. GI: Denies any blood in stools or constipation. PHYSICAL EXAM: VITAL SIGNS: Stable GENERAL: Well-developed pleasant in no acute distress. HEENT: No scleral icterus. Extraocular movements grossly intact. Moist buccal mucosa. NECK: Supple without lymphadenopathy. CHEST: Unlabored respirations. Equal bilateral excursions. CARDIOVASCULAR: Regular rate and rhythm. Distal 2+ pulses. ABDOMEN: Soft, nondistended. MUSCULOSKELETAL: No clubbing, cyanosis, or edema. ASSESSMENT: 1. Gastroesophageal reflux disease 2. Colon screen. PLAN: 1. 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, hemmorhoid sx, rhinoplasty fx penis repair Past Anesthesia/Blood Transfusion Reactions: Previous Problems w/ Anesthesia Additional Past Anesthesia/Blood Transfusion Reaction / Comment(s): "unable to tip head all the way back" hx of scar tissue r/t to hx tracheostomy, states has a "disfunctioning valve" so can only tolerate minimal air in stomach Smoking Status: Current every day smoker - Past Family History Father Family Medical History: Cancer Mother Family Medical History: Cancer Medications and Allergies Home Medications Medication Instructions Recorded Confirmed Type Cholecalciferol [Vitamin D3] 1,000 unit PO DAILY 08/10/17 07/24/23 History Cyanocobalamin (Vitamin B-12) 1,000 mcg PO DAILY 08/10/17 07/24/23 History [Vitamin B-12] Sildenafil Citrate [Sildenafil] 5 mg PO HS 08/10/17 07/24/23 History clonazePAM [KlonoPIN] 1 mg PO HS 09/16/18 07/24/23 History Cyclobenzaprine [Flexeril] 10 mg PO HS PRN 06/12/22 07/24/23 History Famotidine [Pepcid] 40 mg PO HS 06/12/22 07/24/23 History Melatonin [Melatonin ER] 10 mg PO HS 06/12/22 07/24/23 History Pseudoephedrine HCl [Sudafed] 60 mg PO DIRECTED PRN 06/12/22 07/24/23 History Tamsulosin HCl [Flomax] 0.4 mg PO BID 06/12/22 07/24/23 History Vitamin E (Dl,Tocopheryl Acet) 400 unit PO DAILY 06/12/22 07/24/23 History [Vitamin E (400 Iu = 180 mg)] Sennosides/Docusate Sodium [Senna 1 each PO DAILY #20 capsule 01/29/23 07/24/23 Rx Plus 8.6-50 mg Softgel] Potassium(Unk) 1 tab PO DAILY 07/24/23 07/24/23 History Allergies Allergy/AdvReac Type Severity Reaction Status Date / Time ragweed pollen AdvReac Unknown Verified 07/24/23 10:56
[~2023-07-26 08:08] MED LIST changes: -ACETAMINOPHEN TAB 500 MG TAB PO PRN; -DEXAMETHASONE SOD PHOSPHATE 4 MG/ML 1 ML VIAL IVP ONE; -DEXAMETHASONE SOD PHOSPHATE 4 MG/ML 1 ML VIAL ONE; -GLYCOPYRROLATE 0.2 MG/ML 2 ML VIAL ONE; -HYDROcodone/APAP 5-325MG 1 EACH TAB PO PRN; -HYDROcodone/APAP 7.5-325MG 1 EACH TAB PO PRN; -HYDROmorphone (PF) 1 MG/ML ONE; -HYDROmorphone 0.5 MG/0.5 ML SYRINGE IVP PRN; -LACTATED RINGERS 1,000 ML IV ONE; -LACTATED RINGERS 1,000 ML IV SCH; -LIDOCAINE 2% INJ 20 MG/ML (2 ML VIAL) ONE; -MELOXICAM 7.5 MG TAB PO PRN; -MIDAZOLAM 2 MG/2 ML VIAL IVP ONE; -NALOXONE 0.4 MG/ML 1 ML VIAL IV PRN; -NEOSTIGMINE 1 MG/ML 10 ML VIAL ONE; -ONDANSETRON 4 MG/2 ML VIAL IVP ONE; -ONDANSETRON 4 MG/2 ML VIAL IVP PRN; -PROPOFOL 10 MG/ML 20 ML VIAL IV ONE; -ROCURONIUM 10 MG/ML (5 ML VIAL) IV ONE; -ROPIVACAINE 1,100 MG, SODIUM CHLORIDE 0.9% 500 ML 330 ML, EMPTY PAIN BALL 1 EACH MISCELLANE PRN; -ROPIVACAINE 5 MG/ML 30 ML VIAL ONE; -SUCCINYLCHOLINE CHLORIDE 200 MG/10 ML VIAL IV ONE; -TRANEXAMIC 1,000 MG/100ML-NACL 1,000 MG in SALINE 1 100ML.BAG IVPB PRN; -TRANEXAMIC 1,000 MG/100ML-NACL PREMIX BAG ONE; -fentaNYL (PF) 50 MCG/ML 2 ML AMP ONE
[2023-07-26] MEDS: LACTATED RINGERS 1,000 ML IV SCH (08:43)
[2023-07-26] MEDS ORDERED: GLYCOPYRROLATE 0.2 MG/ML 2 ML VIAL ONE (08:46)
[2023-07-26] MEDS ORDERED: PROPOFOL 10 MG/ML 20 ML VIAL IV ONE (08:46)
[2023-07-26] MEDS ORDERED: LIDOCAINE 2% (PF) 20 MG/ML 5 ML VIAL ONE (08:46)
[2023-07-26 08:51] VITALS: TEMP 97.5
--- NOTE | 2023-07-26 09:02 | P.PCN ---
Date of Procedure: 07/26/23 Description of Procedure: PREOPERATIVE DIAGNOSIS: Gastroesophageal reflux disease. Dysphagia POSTOPERATIVE DIAGNOSIS: Gastroesophageal reflux disease. Gastritis. Diaphragmatic hiatal hernia with erosive esophagitis OPERATION: Esophagogastroduodenoscopy with biopsies along esophagus, antrum and duodenum SURGEON: Kiki Ellis MD ANESTHESIA: MAC. INDICATIONS: The patient is a 68-year-old female who presents with reflux disease. Benefits and risks of the procedure were described. Informed consent was obtained. DESCRIPTION: The patient was brought into the endoscopy suite and laid in the left lateral decubitus position. An Olympus gastroscope was passed along the posterior oropharynx down to the distal esophagus where the squamocolumnar junction was encountered at 41 cm from the incisors. The stomach was entered and no bile reflux was found. Additional findings are listed below. Biopsies with cold forceps were obtained of the antrum. The first through third portion of the duodenum was examined. Retroflexion of the scope confirmed Hill grade 4 lower esophageal valve. The squamocolumnar junction demonstrated LA grade B erosive esophagitis. The stomach was desufflated. The patient tolerated the procedure well. FINDINGS: Squamocolumnar junction 41 cm from the incisors. Diaphragmatic hiatus at 43 cm. Hiatal hernia, 2 cm Hill grade 4 lower esophageal valve. LA grade B erosive esophagitis. Biopsies obtained Biopsies obtained of the duodenum. Chronic gastritis with biopsies obtained. RECOMMENDATIONS: Upper endoscopy as needed.
--- NOTE | 2023-07-26 09:28 | P.PCN ---
Date of Procedure: 07/26/23 Description of Procedure: PREOPERATIVE DIAGNOSIS: Personal history of colon polyps Colonoscopy screening POSTOPERATIVE DIAGNOSIS: Tubular adenoma ascending colon Tubular adenoma transverse colon Sigmoid diverticulosis, severe Internal hemorrhoids, grade 3 OPERATION: Colonoscopy to the ileocecal valve and appendiceal orifice, cecum Colonoscopy with hot snare polypectomy SURGEON: Kiki Ellis MD. ANESTHESIA: MAC. INDICATIONS: The patient is an 68-year-old male who presents personal history of colon polyps. Last colonoscopy 5 years. Benefits and risks were described and informed consent was obtained. DESCRIPTION OF PROCEDURE: The patient had undergone GoLytely prep. The patient had been brought into the operating room and laid in the left lateral decubitus position. After adequate intravenous sedation, the rectum was examined with 2% lidocaine jelly. The prostate was unremarkable. External hemorrhoids were encountered. The rectal tone was within normal limits. No lesions were palpated in the rectal vault. An Olympus colonoscope was advanced until the cecum, ileocecal valve and appendiceal orifice were clearly viewed. The prep was fair. Sigmoid diverticulosis severe was encountered. Colonic polyps were found and removed. No evidence of focal colitis was found. Retroflexion of the scope demonstrated grade 2 internal hemorrhoids without active bleeding or inflammation. The colon was desufflated. The patient had tolerated the procedure well. Withdrawal time was over 6 minutes. FINDINGS: Aronchick preparation quality scale 2+ (1-5) Internal hemorrhoids, grade 3 External hemorrhoids, grade 3. No arteriovenous malformations. Sigmoid diverticulosis, severe Removal of 2 polyps: - Snare polypectomy ascending colon, 5 mm tubulovillous adenoma - Snare polypectomy transverse colon, 8 mm flat villous adenoma No focal colitis. RECOMMENDATIONS: Given severity of tubular adenomas, recommend repeat colonoscopy 3 years, 2026 Plan - Discharge Summary Discharge Rx Participant: No New Discharge Prescriptions: Continue Sildenafil Citrate 5 mg PO HS Cyanocobalamin (Vitamin B-12) [Vitamin B-12] 1,000 mcg PO DAILY Cholecalciferol [Vitamin D3 (25 Mcg = 1000 Iu)] 1,000 unit PO DAILY clonazePAM [KlonoPIN] 1 mg PO HS Cyclobenzaprine [Flexeril] 10 mg PO HS PRN PRN Reason: Muscle Spasm Tamsulosin HCl [Flomax] 0.4 mg PO BID Melatonin [Melatonin ER] 10 mg PO HS Potassium(Unk) 1 tab PO DAILY Vitamin E (Dl,Tocopheryl Acet) [Vitamin E (400 Iu = 180 mg)] 400 unit PO DAILY Famotidine [Pepcid] 40 mg PO HS Pseudoephedrine HCl [Sudafed] 60 mg PO DIRECTED PRN PRN Reason: Congestion Sennosides/Docusate Sodium [Senna Plus 8.6-50 mg Softgel] 1 each PO DAILY #20 capsule Discharge Medication List Cholecalciferol [Vitamin D3 (25 Mcg = 1000 Iu)] 1,000 unit PO DAILY 08/10/17 [History] Cyanocobalamin (Vitamin B-12) [Vitamin B-12] 1,000 mcg PO DAILY 08/10/17 [History] Sildenafil Citrate 5 mg PO HS 08/10/17 [History] clonazePAM [KlonoPIN] 1 mg PO HS 09/16/18 [History] Cyclobenzaprine [Flexeril] 10 mg PO HS PRN 06/12/22 [History] Famotidine [Pepcid] 40 mg PO HS 06/12/22 [History] Melatonin [Melatonin ER] 10 mg PO HS 06/12/22 [History] Pseudoephedrine HCl [Sudafed] 60 mg PO DIRECTED PRN 06/12/22 [History] Tamsulosin HCl [Flomax] 0.4 mg PO BID 06/12/22 [History] Vitamin E (Dl,Tocopheryl Acet) [Vitamin E (400 Iu = 180 mg)] 400 unit PO DAILY 06/12/22 [History] Sennosides/Docusate Sodium [Senna Plus 8.6-50 mg Softgel] 1 each PO DAILY #20 capsule 01/29/23 [Rx] Potassium(Unk) 1 tab PO DAILY 07/24/23 [History] Follow up Appointment(s)/Referral(s): Kiki Ellis MD [STAFF PHYSICIAN] - 08/21/23 10:00 am Patient Instructions/Handouts: Colorectal Polyps (GEN), Diverticulosis Diet (GEN), Diverticulosis (DC) Activity/Diet/Wound Care/Special Instructions: Repeat colonoscopy 3 years, 2026 Discharge Disposition: HOME SELF-CARE
[2023-07-26 11:10] VITALS: BP 133/75; PULSE 88; RESP 20
[2023-07-26] MEDS: SIMETHICONE 80 MG CHEWABLE PO ONE (11:20)
== END 2023-07-26 11:39 | disposition home or self-care (01) ==
LOC: ORWHC2ENDO 08:08
PROVIDERS: ATTEND Surgery Plastic and Reconstructive Surgery
DX: Z12.11 Encounter for screening for malignant neoplasm of colon (principal); K21.9 Gastro-esophageal reflux disease without esophagitis; K22.10 Ulcer of esophagus without bleeding; K29.50 Unspecified chronic gastritis without bleeding; K44.9 Diaphragmatic hernia without obstruction or gangrene; K57.30 Diverticulosis of large intestine without perforation or abscess without bleeding; K64.2 Third degree hemorrhoids; D12.3 Benign neoplasm of transverse colon; D12.2 Benign neoplasm of ascending colon; C91.10 Chronic lymphocytic leukemia of B-cell type not having achieved remission; F17.200 Nicotine dependence, unspecified, uncomplicated; Z79.899 Other long term (current) drug therapy; Z98.890 Other specified postprocedural states
CPT/HCPCS: 88305; 45385; 43239; J2704; J2001

== ENCOUNTER → 2024-05-30 | Outpatient (CLI) | payer MEDICARE ==
--- NOTE | 2024-05-30 09:46 | CTL ---
EXAMINATION TYPE: CT Low Dose Lung DATE OF EXAM: 05/30/2024 9:21 AM COMPARISON: 05/22/2023 CLINICAL INDICATION: Male, 68 years old with history of Z12.2 ENCTR FOR MALIG NEOPLSM OF RESPIT O, F1 7.210; current smoker 1 PPD x31 years., history of tobacco use. TECHNIQUE: Multiple axial non-contrast scans were obtained from approximately the lung apices through the upper abdomen. Coronal and sagittal reformatted images were obtained. Low dose technique was uti lized. MIP were created on a separate workstation and submitted for review. CT DLP: 129.5 mGycm, Automated exposure control for dose reduction was used. CT Contrast: Contrast used: None Oral contrast used: None FINDINGS: Lack of intravenous contrast and low dose technique limits the evaluation of the vascular and soft ti ssue structures. LUNGS: No evidence of pulmonary fibrosis. No evidence of focal consolidation, pneumothorax or pleural effusion. Centrilobular emphysema changes. Scattered pleural calcifications. Nodules: RUL: 4 mm series 4 image 14, more posteriorly 5 mm series 5 image 14. RML: None. RLL: None. HERRERA: None. LLL: 5 mm series 5 image 49.. AIRWAY: Patent and unremarkable. Rightward deviated trachea is enters the thorax with administration of focal narrowing series 5 image 14.r HEART: Size within normal limits. MEDIASTINUM: No gross evidence of adenopathy. VASCULATURE: No aortic aneurysm. MUSCULOSKELETAL: No acute osseous abnormalities SOFT TISSUES/LYMPH NODES: Unremarkable. LOWER NECK: No significant findings. UPPER ABDOMEN: Scattered colonic diverticula. IMPRESSION: 1. No clinically significant pulmonary nodules. 2. Mild emphysema. 3. Pleural calcifications correlate for history of asbestos exposure. No evidence for soft tissue mas s. CT LUNG RAD AND CT CHEST RECOMMENDATION: Lung-Rad 2 Benign Appearance or Behavior: Continue annual sc reening with LDCT in 12 months. S Modifier (other clinically significant findings): None Recommend smoking cessation (if current smoker), or continuation of smoking cessation (if prior smoke r). Annual screening for lung cancer with low-dose computed tomography is recommended in adults ages 55 to 77 years who have a 30 pack-year smoking history and currently smoke or have quit within the pa st 15 years. Screening should be discontinued once a person has not smoked for 15 years or develops a health problem that substantially limits life expectancy or the ability or willingness to have curat jimmie lung surgery. Lung rads 2021 [email or web address] [facility], , 05/30/2024 9:43 AM
== END | disposition home or self-care (01) ==
LOC: RADCTMAIN 08:50
PROVIDERS: ATTEND Family Medicine
DX: Z12.2 Encounter for screening for malignant neoplasm of respiratory organs (principal); F17.210 Nicotine dependence, cigarettes, uncomplicated; J43.9 Emphysema, unspecified; Z77.090 Contact with and (suspected) exposure to asbestos
CPT/HCPCS: 71271